=== PATIENT | female | born 1945 | race Caucasian/White ===

== ENCOUNTER 2021-04-07 09:13 | Emergency (ER) | payer OTHER ==
[2021-04-07 09:39] VITALS: BMI 21.9
[2021-04-07] MEDS ORDERED: MECLIZINE HCL 25 MG TABLET (FP) PO ONE (09:56)
[2021-04-07] MEDS ORDERED: MECLIZINE HCL 25 MG TABLET (FP) ONE (10:11)
[2021-04-07] MEDS ORDERED: diazePAM CARPU-JECT 10 MG/2 ML DISP.SYRIN IVPUSH ONE (10:45)
[2021-04-07 11:00] LABS: BASO % 0.2 % (0-2.0); EOS % 1.5 % (0-4.5); HEMATOCRIT 39.8 % (32.4-45.2); MCH 31.5 pg (25.7-33.7); MCHC 35.1 g/dl (32.0-36.0); MEAN CELL VOLUME 89.7 fl (80-96); MEAN PLT VOLUME 9.3 fl (7.5-11.1); MONO % 5.3 % (3.8-10.2); PLATELET COUNT 143 10^3/uL (134-434); RBC 4.44 M/mm3 (3.60-5.2); RDW 14.1 % (11.6-15.6); WHITE BLOOD COUNT 6.1 K/mm3 (4.0-10.0)
[2021-04-07 11:32] LABS: EPI CELLS 13 /uL (0-25.1); HYALINE CASTS 2 /uL (0-3.1); URINE APPEARANCE CLOUDY; URINE BACTERIA 5 /uL (0-1359); URINE BILIRUBIN NEGATIVE (NEGATIVE); URINE COLOR YELLOW; URINE GLUCOSE (UA) NEGATIVE (NEGATIVE); URINE KETONE NEGATIVE (NEGATIVE); URINE LEUK ESTERASE NEGATIVE (NEGATIVE); URINE NITRITE NEGATIVE (NEGATIVE); URINE PROTEIN 2+ (NEGATIVE); URINE RBC 106 /uL (0-23.9); URINE UROBILINOGEN 0.2 mg/dL (0.2-1.0); URINE WBC 8 /uL (0-25.8)
[2021-04-07] MEDS ORDERED: diazePAM CARPU-JECT 10 MG/2 ML DISP.SYRIN ONE (11:47)
[2021-04-07 11:59] LABS: CHLORIDE 106 mmol/L (98-107); SODIUM 140 mmol/L (136-145)
[2021-04-07 12:02] LABS: ALBUMIN 3.8 g/dl (3.4-5.0); ANION GAP 5 MMOL/L (8-16); BLOOD UREA NITROGEN 19.8 mg/dL (7-18); CO2 30 mmol/L (21-32); GLUCOSE,RANDOM 133 mg/dL (74-106)
[2021-04-07 12:05] LABS: SGOT/AST 31 U/L (15-37); SGPT/ALT 31 U/L (13-61)
[2021-04-07 12:07] LABS: BILIRUBIN,TOTAL 0.5 mg/dL (0.2-1); TOT PROT 7.5 g/dl (6.4-8.2)
[2021-04-07 12:08] LABS: ALK PHOS 82 U/L (45-117)
[2021-04-07 15:30] VITALS: BP 159/85; PULSE 89; TEMP 98.1
== END 2021-04-07 16:21 | disposition home or self-care (01) ==
LOC: JER 09:13
PROC: 3E033NZ Introduction of Analgesics, Hypnotics, Sedatives into Peripheral Vein, Percutaneous Approach (ICD-10-PCS; principal; 2021-04-07)
DX: R11.2 Nausea with vomiting, unspecified (principal); R42 Dizziness and giddiness; R25.2 Cramp and spasm; R55 Syncope and collapse
CPT/HCPCS: 36415; 70450-TC; 71045-TC-FY; 80053; 81003; 82550; 82962; 84484; 85025; 87086; 93005; 93010; 93971-TC; 99285-25